=== PATIENT | female | born 1955 | race Caucasian/White ===

== ENCOUNTER → 2016-11-29 | Outpatient (CLI) | payer BC ==
--- NOTE | 2016-11-29 16:52 | WOMENS IMAGING REPORT ---
EXAM DESCRIPTION: LEFT DIAGNOSTIC MAMMO W/CAD COMPLETED DATE/TIME: 11/29/2016 12:48 pm REASON FOR STUDY: INCONCLUSIVE MAMMOGRAM/NODULE R92.2 INCONCLUSIVE MAMMOGRAM COMPARISON: Multiple mammograms since 2009 TECHNIQUE: Cone compression craniocaudal and mediolateral oblique images of the breast recorded with digital acquisition. Additional left breast 90 mediolateral view LIMITATIONS: None. FINDINGS: BREAST: Left MASSES: No suspicious masses. Nodule versus superimposed shadows seen left breast CC view only on is not identified on today's cone compression and 90 mediolateral view CALCIFICATIONS: No new or suspicious calcifications. ARCHITECTURAL DISTORTION: None. DEVELOPING DENSITY: None. ASYMMETRY: None noted. OTHER: No other significant findings. Read with the assistance of CAD. .[facility] - R2 Cenova Version 1.3 .[facility] Imaging - R2 Cenova Version 1.3 .[facility] - R2 Cenova Version 2.4 .[facility] [place] - R2 Cenova Version 2.4 .[facility] - R2 Roll Contour Grinder Version 9.2 BREAST DENSITY: b. There are scattered areas of fibroglandular density. BIRAD: 1 Negative. RECOMMENDATION: RECOMMENDED FOLLOW UP: Please continue yearly bilateral screening mammography Dece2016 SPECIFIC INTERVENTION/IMAGING/CONSULTATION RECOMMENDED:No additional intervention/ imaging/consultati on needed at this time. COMMUNICATION:Patient notified by letter COMMENT: PATIENT NOTIFIED BY LETTER. The [employer] ([employer]) has developed recommendations for screening MRI of the breast s in certain patient populations, to be used in conjunction with mammography. Breast MRI surveillanc e may be appropriate for women with more than 20% lifetime risk of developing breast cancer as deter mined by genetic testing, significant family history of the disease, or history of mantle radiation f or Hodgkins Disease. [employer]CR Practice Guidelines 2008. TECHNICAL DOCUMENTATION: FINDING NUMBER: (1) ASSESSMENT: (1) JOB ID: [id number] [employer]- All Rights Reserved
== END ==
LOC: WI 12:21
PROVIDERS: ATTEND Family Medicine
DX: N63 Unspecified lump in breast (principal)
CPT/HCPCS: G0204-52

== ENCOUNTER 2016-12-11 22:13 | Emergency (ER) | payer BC ==
--- NOTE | 2016-12-12 00:35 | ER Document Report ---
ED Respiratory Problem - General Chief Complaint: Flu Symptoms Stated Complaint: COUGH Time seen by provider: 00:30 Notes: Patient is 61-year-old female that comes emergency department for chief complaint of cough, fevers, and green sputum production for about 5 days. Patient states she was seen by primary care and given Phenergan with codeine which she states she has not filled. Patient smokes, states she has COPD, does not have any daily medications or inhalers. Patient denies any other symptoms or any other medical history. TRAVEL OUTSIDE OF THE [place] IN LAST 30 DAYS: No - Related Data Allergies/Adverse Reactions: No Known Allergies Allergy (Verified 12/12/16 00:31) Past Medical History - General Information source: Patient - Social History Smoking Status: Current Every Day Smoker Cigarette use (# per day): No Chew tobacco use (# tins/day): No Smoking Education Provided: Yes - <3 min Frequency of alcohol use: None Drug Abuse: None Lives with: Family Family History: Reviewed & Not Pertinent Patient has suicidal ideation: No Patient has homicidal ideation: No Pulmonary Medical History: Reports: Hx COPD Renal/ Medical History: Denies: Hx Peritoneal Dialysis Surgical Hx: Negative - Immunizations Hx Diphtheria, Pertussis, Tetanus Vaccination: Yes Review of Systems - Review of Systems Constitutional: See HPI EENT: See HPI Cardiovascular: No symptoms reported Respiratory: See HPI Gastrointestinal: No symptoms reported Genitourinary: No symptoms reported Female Genitourinary: No symptoms reported Musculoskeletal: No symptoms reported Skin: No symptoms reported Hematologic/Lymphatic: No symptoms reported Neurological/Psychological: No symptoms reported Physical Exam - Vital signs Vitals: Temp Pulse Resp BP Pulse Ox 97.6 F 67 16 147/70 H 95 12/11/16 22:38 12/11/16 22:38 12/11/16 22:38 12/11/16 22:38 12/11/16 22:38 Interpretation: Normal - General General appearance: Appears well, Alert In distress: None - HEENT Head: Normocephalic, Atraumatic Eyes: Normal Conjunctiva: Normal Extraocular movements intact: Yes Eyelashes: Normal Pupils: PERRL Nasal: Normal Mouth/Lips: Normal Mucous membranes: Normal Pharynx: Normal Neck: Normal - Respiratory Respiratory status: No respiratory distress. No: Respiratory distress, Retractions, Tachypnea Chest status: Nontender Breath sounds: Decreased air movement, Productive cough - Patient with occasional nonproductive cough and occasionally productive cough. No: Rales, Rhonchi, Stridor, Wheezing Chest palpation: Normal - Cardiovascular Rhythm: Regular. No: Tachycardia Heart sounds: Normal auscultation, S1 appreciated, S2 appreciated Murmur: No - Abdominal Inspection: Normal Distension: No distension Bowel sounds: Normal Tenderness: Nontender. No: Tender Organomegaly: No organomegaly - Back Back: Normal, Nontender. No: Tender - Extremities General upper extremity: Normal inspection, Nontender, Normal color, Normal ROM , Normal temperature General lower extremity: Normal inspection, Nontender, Normal color, Normal ROM , Normal temperature, Normal weight bearing. No: Bree's sign - Neurological Neuro grossly intact: Yes Cognition: Normal Orientation: AAOx4 Tammie Coma Scale Eye Opening: Spontaneous Tammie Coma Scale Verbal: Oriented Tammie Coma Scale Motor: Obeys Commands Tammie Coma Scale Total: 15 Speech: Normal Motor strength normal: LUE, RUE, LLE, RLE Sensory: Normal - Psychological Associated symptoms: Normal affect, Normal mood - Skin Skin Temperature: Warm Skin Moisture: Dry Skin Color: Normal Course - Re-evaluation Re-evalutation: Patient complaining of productive cough, fevers, no chest x-ray abnormality shown that is acute, only chronic scarring and COPD. No hypoxia, labored breathing, or respiratory distress. Discussed smoking cessation, treating patient for COPD exacerbation and productive cough with prednisone and azithromycin, patient given work release note, instructed to follow-up with primary care, discussed return precautions. Patient states understanding and agreement. - Vital Signs Vital signs: Temp Pulse Resp BP Pulse Ox 98.1 F 94 18 140/73 H 97 12/12/16 02:33 12/12/16 02:33 12/12/16 02:33 12/12/16 02:33 12/12/16 02:33 Discharge - Discharge Clinical Impression: Productive cough, COPD exacerbation Condition: Stable Disposition: HOME, SELF-CARE Additional Instructions: Chest x-ray shows some chronic scarring but no pneumonia or other new abnormality. Stop smoking. Take the prednisone as directed, take the azithromycin antibiotic as directed. Use your Phenergan with codeine for cough if needed. Follow-up with primary care referral. Return to the emergency department for any concerning or worsening symptoms including fever, worsening shortness of breath, etc. Prescriptions: Azithromycin [Zithromax 250 mg Tablet] 250 mg PO ASDIR PRN #6 tablet PRN Reason: Prednisone 20 mg PO DAILY #15 tablet Forms: Smoking Cessation Education, Return to Work Referrals: CAT BESS MD [Primary Care Provider] - Follow up as needed
[2016-12-12] MEDS ORDERED: PREDNISONE 20 MG TABLET PO ONE (01:45)
[2016-12-12 02:35] VITALS: BP 140/73
== END 2016-12-12 02:04 | disposition home or self-care (01) ==
LOC: ER 22:13
DX: J44.1 Chronic obstructive pulmonary disease with (acute) exacerbation (principal); R05 Cough; R50.9 Fever, unspecified; F17.200 Nicotine dependence, unspecified, uncomplicated; Z71.6 Tobacco abuse counseling
CPT/HCPCS: 99283; 71020; J7512

== ENCOUNTER 2019-12-04 11:17 | Emergency (ER) | payer MEDICARE, MEDICAID ==
[2019-12-04] MEDS ORDERED: METHYLPREDNISOLONE INJ 125 MG/2 ML SDV IV ONE ×2 (11:27→12:00)
[2019-12-04] MEDS ORDERED: IPRATROPIUM/ALBUTEROL 0.5-2.5 MG/3 ML AMPUL NEB ONE ×2 (11:27→12:00)
--- NOTE | 2019-12-04 11:30 | ER Document Report ---
ED Medical Screen (RME) - General Chief Complaint: Cold Symptoms Stated Complaint: RUNNY NOSE/COUGH Time Seen by Provider: 12/04/19 11:23 Primary Care Provider: CAT BESS MD [Primary Care Provider] - Follow up as needed Mode of Arrival: Ambulatory Information source: Patient Notes: Patient presents complaining of cough for the past 10 days with shortness of breath. Patient states cough is been nonproductive. Patient reports subjective fever. Patient does have a history of COPD and does smoke. I have greeted and performed a rapid initial assessment of this patient. A comprehensive ED assessment and evaluation of the patient, analysis of test results and completion of the medical decision making process will be conducted by additional ED providers. TRAVEL OUTSIDE OF THE [place] IN LAST 30 DAYS: No - Related Data Allergies/Adverse Reactions: No Known Allergies Allergy (Verified 12/04/19 11:23) Past Medical History - Social History Chew tobacco use (# tins/day): No Frequency of alcohol use: None Drug Abuse: Methamphetamine Pulmonary Medical History: Reports: Hx COPD Renal/ Medical History: Denies: Hx Peritoneal Dialysis - Immunizations Hx Diphtheria, Pertussis, Tetanus Vaccination: Yes Physical Exam - Vital signs Vitals: Temp Pulse Resp BP Pulse Ox 98.0 F 106 H 24 H 146/72 H 91 L 12/04/19 11:21 12/04/19 11:21 12/04/19 11:12/04/19 11:21 12/04/19 11:21 - Respiratory Respiratory status: Tachypnea. No: Labored Breath sounds: Nonproductive cough, Wheezing - Only with cough Course - Vital Signs Vital signs: Temp Pulse Resp BP Pulse Ox 98.0 F 106 H 24 H 146/72 H 91 L 12/04/19 11:21 12/04/19 11:21 12/04/19 11:21 12/04/19 11:12/04/19 11:21 Doctor's Discharge - Discharge Referrals: CAT BESS MD [Primary Care Provider] - Follow up as needed
--- NOTE | 2019-12-04 12:23 | RADIOLOGY REPORT (SQ) ---
EXAM DESCRIPTION: CHEST 2 VIEWS COMPLETED DATE/TIME: 12/04/2019 12:08 pm REASON FOR STUDY: cough COMPARISON: None. EXAM PARAMETERS: NUMBER OF VIEWS: two views TECHNIQUE: PA and lateral views of the chest were obtained. RADIATION DOSE: NA LIMITATIONS: none FINDINGS: LUNGS AND PLEURA: Acute patchy opacities in the right upper lobe that abut the horizontal fissure. There is no sizable pleural effusion or pneumothorax. MEDIASTINUM AND HILAR STRUCTURES: No mediastinal or hilar contour abnormality. HEART AND VASCULAR STRUCTURES: The cardiac silhouette and pulmonary vasculature are within normal dixon its. BONES: No acute findings. HARDWARE: None in the chest. OTHER: No other finding. IMPRESSION: Right upper lobe pneumonia. TECHNICAL DOCUMENTATION: JOB ID: [id number] [employer]- All Rights Reserved Reading location - IP/workstation name: [email or web address]
[2019-12-04] MEDS ORDERED: METHYLPREDNISOLONE INJ 125 MG/2 ML SDV ONE (14:03)
[2019-12-04] MEDS ORDERED: ALBUTEROL SULFATE HFA (90 MCG/PUFF) 8 GM MDI (1 MDI/ER DISP) IH PRN (14:30)
[2019-12-04] MEDS ORDERED: LEVOFLOXACIN 750 MG TABLET PO ONE (14:32)
[2019-12-04 14:40] LABS: ABSOLUTE LYMPHOCYTES (AUTO) 1.1 10^3/uL (0.5-4.7); ABSOLUTE MONOCYTES (AUTO) 0.8 10^3/uL (0.1-1.4); ABSOLUTE NEUT (AUTO) 10.7 10^3/uL (1.7-8.2); BASOPHILS % (AUTO) 0.3 % (0-2); EOSINOPHILS % (AUTO) 0.1 % (0-6); HEMATOCRIT 41.2 % (36.0-47.0); HEMOGLOBIN 13.6 g/dL (12.0-15.5); MEAN CORPUSCULAR VOLUME 85 fl (80-97); MONOCYTES % (AUTO) 6.4 % (3-13); PLATELET COUNT 354 10^3/uL (150-450); RED BLOOD COUNT 4.84 10^6/uL (3.72-5.28); RED CELL DISTRIBUTION WIDTH 13.5 % (11.5-14.0); SEGMENTED NEUTROPHILS % (AUTO) 84.2 % (42-78); TOTAL CELLS COUNTED % (AUTO) 100 %; WHITE BLOOD COUNT 12.7 10^3/uL (4.0-10.5)
[2019-12-04 15:44] LABS: ALBUMIN 4.1 g/dL (3.5-5.0); ALKALINE PHOSPHATASE 124 U/L (38-126); ANION GAP 11 (5-19); ASPARTATE AMINO TRANSFERASE 28 U/L (14-36); BILIRUBIN,DIRECT 0.3 mg/dL (0.0-0.4); BILIRUBIN,TOTAL 0.5 mg/dL (0.2-1.3); BLOOD UREA NITROGEN 28 mg/dL (7-20); CALCIUM 9.5 mg/dL (8.4-10.2); CARBON DIOXIDE 27 mmol/L (22-30); CHLORIDE 99 mmol/L (98-107); GLUCOSE 78 mg/dL (75-110); POTASSIUM 4.7 mmol/L (3.6-5.0); TOTAL PROTEIN 7.2 g/dL (6.3-8.2)
--- NOTE | 2019-12-04 16:07 | ER Document Report ---
ED General - General Chief Complaint: Cold Symptoms Stated Complaint: RUNNY NOSE/COUGH Time Seen by Provider: 12/04/19 11:23 Primary Care Provider: CAT BESS MD [Primary Care Provider] - Follow up as needed Mode of Arrival: Ambulatory TRAVEL OUTSIDE OF THE [place] IN LAST 30 DAYS: No - HPI Notes: Patient is a 64-year-old female who presents emergency department for evaluation of cough and shortness of breath. No fevers or chills. She denies any pain. Is been going on for about the last week. She is eating and drinking normally. She states she is feeling intermittently short of breath. She does admit to smoking heavily. - Related Data Allergies/Adverse Reactions: No Known Allergies Allergy (Verified 12/04/19 11:23) Past Medical History - General Information source: Patient - Social History Smoking Status: Current Every Day Smoker Chew tobacco use (# tins/day): No Frequency of alcohol use: None Drug Abuse: Methamphetamine Family History: Reviewed & Not Pertinent Patient has suicidal ideation: No Patient has homicidal ideation: No Pulmonary Medical History: Reports: Hx COPD Renal/ Medical History: Denies: Hx Peritoneal Dialysis - Immunizations Hx Diphtheria, Pertussis, Tetanus Vaccination: Yes Review of Systems - Review of Systems Constitutional: No symptoms reported EENT: No symptoms reported Cardiovascular: No symptoms reported Respiratory: See HPI Gastrointestinal: No symptoms reported Genitourinary: No symptoms reported Musculoskeletal: No symptoms reported Skin: No symptoms reported Neurological/Psychological: No symptoms reported Physical Exam - Vital signs Vitals: Temp Pulse Resp BP Pulse Ox 98.0 F 106 H 24 H 146/72 H 91 L 12/04/19 11:21 12/04/19 11:21 12/04/19 11:21 12/04/19 11:21 12/04/19 11:21 - Notes Notes: This is a 64-year-old female who appears her stated age in no acute distress. Normal respiratory effort and respiratory rate. Vital signs reviewed, please refer to chart. Head is normocephalic, atraumatic. Pupils equal round, reactive to light. Neck is supple without meningismus. Heart is regular rate and r hythm. Lungs reveal diminished breath sounds in the right upper lobe. Abdomen is soft, nontender, normoactive bowel sounds throughout. Extremities without cyanosis, clubbing. Posterior calves are nontender. Peripheral pulses are equal. Skin is warm and dry. Patient is awake, alert, neurological exam is nonfocal. Course - Re-evaluation Re-evalutation: 12/04/19 16:04 Patient presents emergency department for evaluation. She is a longtime smoker. She has been coughing. She does have a mild leukocytosis as well as a pneum onia. She has had no fevers or chills. No nausea or vomiting. She would like to do a trial at home. I will send her home with albuterol, antibiotics, and close follow-up. She is strongly urged to quit smoking. She voiced understanding to all of this. She is to return to the emergency department for worsening or new concerning symptoms of any sort. - Vital Signs Vital signs: Temp Pulse Resp BP Pulse Ox 98.0 F 96 20 146/72 H 93 12/04/19 11:21 12/04/19 14:39 12/04/19 14:39 12/04/19 11:21 12/04/19 14:39 - Laboratory Result Diagrams: 12/04/19 14:16 12/04/19 14:16 Laboratory results interpreted by me: 12/04/19 12/04/19 14:16 14:16 WBC 12.7 H Lymph % (Auto) 9.0 L Absolute Neuts (auto) 10.7 H Seg Neutrophils % 84.2 H BUN 28 H Est GFR ( Amer) 56 L Est GFR (MDRD) Non-Af 46 L - Diagnostic Test Radiology reviewed: Image reviewed, Reports reviewed Radiology results interpreted by me: 12/04/19 16:04 Chest X-Ray 12/04/19 11:28 IMPRESSION: Right upper lobe pneumonia. Discharge - Discharge Clinical Impression: COPD exacerbation Right upper lobe pneumonia Qualifiers: Pneumonia type: due to unspecified organism Qualified Code(s): J18.9 - Pneumonia, unspecified organism Condition: Stable Disposition: HOME, SELF-CARE Instructions: Chronic Obstructive Lung Disease ([facility]), Pneumonia ([facility]) Additional Instructions: Take all of the antibiotic as prescribed till gone, starting tomorrow. Take all the steroids as directed until gone. Use albuterol inhaler at home, 1 to 2 puffs every 4-6 hours as needed for shortness of breath. Follow-up with primary care this week. If you develop increased difficulty breathing, or any other new or concerning symptoms, please return immediately to the emergency department for reevaluation. Prescriptions: Prednisone [Deltasone 20 mg Tablet] See Protocol PO DAILY 5 Days #20 tablet Levofloxacin [Levaquin 750 mg Tablet] 750 mg PO DAILY #4 tablet Forms: Smoking Cessation Education Referrals: CAT BESS MD [Primary Care Provider] - Follow up as needed
[2019-12-04 16:40] VITALS: BP 136/90
--- NOTE | 2019-12-05 01:02 | EKG REPORT ---
SEVERITY:- OTHERWISE NORMAL ECG - SINUS TACHYCARDIA MINIMAL ST DEPRESSION, DIFFUSE LEADS : Confirmed by: Josie De Jesus MD 05-Dec-2019 01:02:01
== END 2019-12-04 16:40 | disposition home or self-care (01) ==
LOC: ER 11:17
DX: J44.1 Chronic obstructive pulmonary disease with (acute) exacerbation (principal); J18.9 Pneumonia, unspecified organism; F17.200 Nicotine dependence, unspecified, uncomplicated
CPT/HCPCS: 93005; 99283; 96374; 36415; 85025; 80053; 84484; 71046; 93010; J2930; A9270 ×2; J7620